=== PATIENT | male | born 1975 | race Caucasian/White ===

== ENCOUNTER 2024-01-05 08:13 | Emergency (ER) | payer BC, SELFPAY ==
[2024-01-05 08:15] VITALS: BP 128/79; PULSE 62; RESP 14; TEMP 36.3; O2SAT 97; BMI 27.6
[2024-01-05 08:16] VITALS: BP 128/79; PULSE 67; RESP 14; O2SAT 97
--- NOTE | 2024-01-05 08:56 | EDS_ITS ---
HPI History of Present Illness Chief Complaint: Rash Informant: patient Narrative Narrative: Patient presents secondary to recurrent rash. He states that for the last 6 months or so he has been getting a recurrent rash that typically starts in the upper chest, spread to the upper extremities, into the right leg. He has been seen multiple times at other facilities and placed on antibiotics. He states when he is on the antibiotics the rash seems to clear, but then recurs. He tells me that he was seen by a specialist but is not sure if it was dermatology. He states they told him to take an antibiotic as well. Patient denies any other significant past history. PFSH PFS no medical history Home Medications ?Medication ?Instructions ?Recorded ?Last Taken ?Type doxycycline monohydrate 100 mg 100 mg PO BID #20 CAPSULES 01/05/24 Unknown Rx capsule prednisone 20 mg tablet 40 mg (2 x 20 mg) PO DAILY #8 tabs 01/05/24 Unknown Rx Allergy/AdvReac Type Severity Reaction Status Date / Time No Known Allergies Allergy Verified 01/05/24 08:16 Social History Smoking Status: Never smoker ROS ROS ED Constitutional Constitutional ED: Denies chills or fever(s) Eyes Eyes: Denies discharge from eye(s) ENT ENT ED: Denies discharge from eye(s), rhinorrhea or sore throat Cardiovascular Cardiovascular: Denies chest pain Respiratory/Chest Respiratory/Chest: Denies cough or dyspnea Gastrointestinal Gastrointestinal: Denies abdominal pain, nausea or vomiting Musculoskeletal Musculoskeletal: Denies back pain Integumentary Reports rash; Denies Abrasions Neurologic Neurologic: Denies headache(s) or weakness Psychiatric Psychiatric: Denies anxiety or depression Allergic/Immunologic Allergic/Immunologic ED: Denies lip swelling or urticaria EXAM Physical Exam Const Vital Signs: 01/05/24 08:15 01/05/24 08:16 Temperature 97.4 F L Temperature Source Temporal Pulse Rate 62 67 Respiratory Rate 14 14 Blood Pressure 128/79 H 128/79 H Blood Pressure Mean 95 95 Pulse Ox 97 97 Oxygen Delivery Method Room Air Room Air Positive well nourished and well developed General Appearance ED: well developed HEENT Reports moist mucous membranes Eyes EOMs intact bilaterally Chest Wall inspection of chest normal and palpation of chest normal Resp normal respiratory effort and clear to auscultation bilaterally Cardio regular rate and regular rhythm GI non-tender Palpation: soft Neuro oriented x3 Skin Skin Narrative: Patient has a couple areas of dry erythematous rash noted over the right lower leg and at the left upper chest. He also has several overlying pustules with mild drainage. No large areas of cellulitis. No large abscesses that require I&D. No joint involvement. No lesions noted to the palms or soles. MDM MDM MDM Narrative Medical decision making narrative: Patient be treated with a course of doxycycline as well as a short burst of steroids. He is referred to dermatology for follow-up I did encourage him to do this so we can determine the cause of the rash and not just keep treating the symptoms when they arise. He voices understanding and agreement. Return instructions provided. Discharge Plan Triage Chief Complaint: Rash ED Provider: Yolanda oGoden Dx/Rx/DC Orders Clinical Impression: Cellulitis, Cutaneous abscess Instructions: ED Abscess Antibiotic Treatment Only, ED Cellulitis Prescriptions: New doxycycline monohydrate 100 mg capsule 100 mg PO BID Qty: 20 0RF prednisone 20 mg tablet 40 mg PO DAILY Qty: 8 0RF Primary Care Provider: Care Physician,No Primary Referrals: Hue Drake MD [Non-Staff] - 1-2 Weeks Riki Beckwith MD [Med Staff - [employer]] - 1-2 Weeks Print Language: Pakistani Disposition Disposition: Home, Self Care Discharge Date/Time: 01/05/24 09:16
[2024-01-05] MEDS: Doxycycline 100 MG CAPSULE PO (09:12)
[2024-01-05] MEDS: predniSONE 20 MG Tablet 40 MG PO (09:12)
== END 2024-01-05 09:16 | disposition home or self-care (01) ==
PROVIDERS: Emergency Provider Emergency Medicine; Visit Provider Emergency Medicine
DX: L03.115 Cellulitis of right lower limb (principal); L02.91 Cutaneous abscess, unspecified; L03.313 Cellulitis of chest wall
CPT/HCPCS: 99283